=== PATIENT | female | born 1985 | race Hispanic/Latino ===

== ENCOUNTER 2017-04-28 18:12 | Emergency (ER) | payer SELFPAY ==
[2017-04-28 18:23] VITALS: BP 122/80
== END 2017-04-29 06:46 | disposition left against medical advice (07) ==
LOC: ED 18:12
DX: R10.9 Unspecified abdominal pain (principal); Z53.21 Procedure and treatment not carried out due to patient leaving prior to being seen by health care provider

== ENCOUNTER 2018-01-31 10:37 | Emergency (ER) | payer MEDICAID ==
--- NOTE | 2018-01-31 13:15 | Emergency Department Report ---
ED Abdominal Pain HPI - General Chief Complaint: Vaginal Bleeding Stated Complaint: 6WKS /SPOTTING Time Seen by Provider: 01/31/18 12:43 Source: patient Mode of arrival: Ambulatory Limitations: No Limitations - History of Present Illness Initial Comments: This is a 32-year-old female who reports that she is 6 weeks based on test that she took at home. She says she has an appointment at [facility] in [place] on 02/05/2018 and this will be her first visit. She reports that she is having some abdominal pressure and light cramping to her pelvic area. Denies any urinary burning or urgency but reports some urinary frequency. She said that she has brown to red blood that she noted some drops in the toilet but no clots. She says that the bleeding has stopped disowning lasted for moment. She said her was confirmed at the health department and she is 3 para 2. No previous related problem per patient's. No nausea or vomiting. Pain is 3 out of 10, crampy and intermittent and no medication taken. Denies any fever or chills or any back pain MD Complaint: abdominal pain, other (vaginal bleed) -: This morning Location: suprapubic Radiation: none Migration to: no migration Severity: mild Severity scale (0 -10): 3 Quality: cramping Consistency: intermittent Improves With: nothing Worsens With: nothing Context: other (confirm ) Associated Symptoms: hematuria, other (vaginal bleeding). denies: nausea, vomiting, diarrhea, fever, chills, constipation, dysuria, hematemesis, hematochezia, melena, anorexia - Related Data LMP (females 10-50): Previous Rx's Medication Instructions Recorded Last Taken Type Ciprofloxacin HCl [Ciprofloxacin 500 mg PO Q12H #10 tab 12/08/14 Unknown Rx TAB] Fluconazole [Diflucan] 150 mg PO ONCE #1 tablet 12/08/14 Unknown Rx metroNIDAZOLE [Flagyl] 500 mg PO Q12H #14 tablet 12/08/[address] [Carmela Day] 75 mg PO Q12H #20 tablet 04/22/15 Unknown Rx Nitrofurantoin [place]/M-Cryst 100 mg PO Q12HR 7 Days #14 capsule 01/31/18 Unknown Rx [Macrobid CAP] Allergies Allergy/AdvReac Type Severity Reaction Status Date / Time No Known Allergies Allergy Verified 01/31/18 10:44 ED Review of Systems ROS: Stated complaint: 6WKS /SPOTTING Other details as noted in HPI Constitutional: denies: chills, fever Eyes: denies: eye pain, eye discharge ENT: ear pain. denies: throat pain, congestion Respiratory: denies: cough, shortness of breath, SOB with exertion, SOB at rest , stridor, wheezing Cardiovascular: denies: chest pain, palpitations, edema, syncope Gastrointestinal: abdominal pain. denies: nausea, vomiting, diarrhea, constipation, hematemesis, melena, hematochezia Genitourinary: frequency, other (vaginal bleed and an report 6 weeks ). denies: urgency, dysuria, hematuria, discharge Musculoskeletal: denies: back pain, joint swelling, arthralgia, myalgia Skin: denies: rash, lesions Neurological: denies: headache, weakness ED Past Medical Hx - Past Medical History Previous Medical History?: No - Surgical History Past Surgical History?: No - Family History Family history: hypertension - Social History Smoking Status: Never Smoker Substance Use Type: None - Medications Home Medications: Home Medications Medication Instructions Recorded Confirmed Last Taken Type Ciprofloxacin HCl [Ciprofloxacin 500 mg PO Q12H #10 tab 12/08/14 Unknown Rx TAB] Fluconazole [Diflucan] 150 mg PO ONCE #1 tablet 12/08/14 Unknown Rx metroNIDAZOLE [Flagyl] 500 mg PO Q12H #14 tablet 12/08/[address] [Voltaren Dr] 75 mg PO Q12H #20 tablet 04/22/15 Unknown Rx Nitrofurantoin [place]/M-Cryst 100 mg PO Q12HR 7 Days #14 capsule 01/31/18 Unknown Rx [Macrobid CAP] ED Physical Exam - General Limitations: No Limitations General appearance: alert, in no apparent distress - Head Head exam: Present: atraumatic, normocephalic, normal inspection - Eye Eye exam: Present: normal appearance, PERRL, EOMI Pupils: Present: normal accommodation - ENT ENT exam: Present: normal exam, normal orophraynx, mucous membranes moist, TM's normal bilaterally, normal external ear exam - Neck Neck exam: Present: normal inspection, full ROM. Absent: tenderness, lymphadenopathy - Respiratory Respiratory exam: Present: normal lung sounds bilaterally. Absent: respiratory distress, chest wall tenderness - Cardiovascular Cardiovascular Exam: Present: regular rate, normal rhythm, normal heart sounds. Absent: systolic murmur, diastolic murmur - GI/Abdominal GI/Abdominal exam: Present: soft, tenderness (mild suprapubic tenderness), normal bowel sounds. Absent: distended, guarding, rebound, rigid, organomegaly , mass - Extremities Exam Extremities exam: Present: normal inspection, full ROM, normal capillary refill , other (No cce. + 2 pulses in all extremities, no neurovascular compromise). Absent: tenderness, pedal edema, joint swelling, calf tenderness - Back Exam Back exam: Present: normal inspection, full ROM, other (ambulate without any difficulties). Absent: tenderness, CVA tenderness (R), CVA tenderness (L), muscle spasm, paraspinal tenderness, vertebral tenderness, rash noted - Neurological Exam Neurological exam: Present: alert, normal gait, reflexes normal. Absent: motor sensory deficit - Psychiatric Psychiatric exam: Present: normal affect, normal mood - Skin Skin exam: Present: warm, dry, intact, normal color. Absent: rash ED Course Vital Signs 01/31/18 10:44 Temperature 97.9 F Pulse Rate 89 Respiratory 18 Rate Blood Pressure 121/75 O2 Sat by Pulse 98 Oximetry - Reevaluation(s) Reevaluation #1: 01/31/18 14:26 Patient with urinary tract infection. She is able to tolerate oral liquids that she was given juices and started on Macrobid. Still awaiting in ultrasound Reevaluation #2: 01/31/18 15:34 Patient is stable, no pain at present. I discussed urinalysis result with patient and also laboratory results. Patient still awaiting ultrasound results Reevaluation #3: 01/31/18 17:13 Patient ultrasound is back and it shows that ED Medical Decision Making - Lab Data Result diagrams: 01/31/18 13:28 01/31/18 13:28 Lab Results 01/31/18 01/31/18 01/31/18 Range/Units 13:28 13:28 13:28 WBC 7.6 (4.5-11.0) K/mm3 RBC 5.03 (3.65-5.03) M/mm3 Hgb 15.6 H (10.1-14.3) gm/dl Hct 45.4 H (30.3-42.9) % MCV 90 (79-97) fl MCH 31 (28-32) pg MCHC 34 (30-34) % RDW 12.7 L (13.2-15.2) % Plt Count 312 (140-440) K/mm3 Lymph % (Auto) 23.3 (13.4-35.0) % [place] % (Auto) 6.2 (0.0-7.3) % Eos % (Auto) 1.2 (0.0-4.3) % Baso % (Auto) 1.0 (0.0-1.8) % Lymph # 1.8 (1.2-5.4) K/mm3 [place] # 0.5 (0.0-0.8) K/mm3 Eos # 0.1 (0.0-0.4) K/mm3 Baso # 0.1 (0.0-0.1) K/mm3 Seg Neutrophils % 68.3 (40.0-70.0) % Seg Neutrophils # 5.2 (1.8-7.7) K/mm3 Sodium 136 L (137-145) mmol/L Potassium 4.2 (3.6-5.0) mmol/L Chloride 103.0 (98-107) mmol/L Carbon Dioxide 24 (22-30) mmol/L Anion Gap 13 mmol/L BUN 8 (7-17) mg/dL Creatinine 0.6 L (0.7-1.2) mg/dL Estimated GFR > 60 ml/min BUN/Creatinine Ratio 13 % Glucose 85 (65-100) mg/dL Calcium 8.6 (8.4-10.2) mg/dL HCG, Qual (Negative) HCG, Quant 41.41 H (0-4) mIU/mL Urine Color (Yellow) Urine Turbidity (Clear) Urine pH (5.0-7.0) Ur Specific [place] (1.003-1.030) Urine Protein (Negative) mg/dL Urine Glucose (UA) (Negative) mg/dL Urine Ketones (Negative) mg/dL Urine Blood (Negative) Urine Nitrite (Negative) Urine Bilirubin (Negative) Urine Urobilinogen (<2.0) mg/dL Ur Leukocyte Esterase (Negative) Urine WBC (Auto) (0.0-6.0) /HPF Urine RBC (Auto) (0.0-6.0) /HPF U Epithel Cells (Auto) (0-13.0) /HPF Urine Bacteria (Auto) (Negative) /HPF Urine WBC Clumps /HPF Blood Type Antibody Screen 01/31/18 01/31/18 01/31/18 Range/Units 13:28 13:28 13:32 WBC (4.5-11.0) K/mm3 RBC (3.65-5.03) M/mm3 Hgb (10.1-14.3) gm/dl Hct (30.3-42.9) % MCV (79-97) fl MCH (28-32) pg MCHC (30-34) % RDW (13.2-15.2) % Plt Count (140-440) K/mm3 Lymph % (Auto) (13.4-35.0) % [place] % (Auto) (0.0-7.3) % Eos % (Auto) (0.0-4.3) % Baso % (Auto) (0.0-1.8) % Lymph # (1.2-5.4) K/mm3 [place] # (0.0-0.8) K/mm3 Eos # (0.0-0.4) K/mm3 Baso # (0.0-0.1) K/mm3 Seg Neutrophils % (40.0-70.0) % Seg Neutrophils # (1.8-7.7) K/mm3 Sodium (137-145) mmol/L Potassium (3.6-5.0) mmol/L Chloride (98-107) mmol/L Carbon Dioxide (22-30) mmol/L Anion Gap mmol/L BUN (7-17) mg/dL Creatinine (0.7-1.2) mg/dL Estimated GFR ml/min BUN/Creatinine Ratio % Glucose (65-100) mg/dL Calcium (8.4-10.2) mg/dL HCG, Qual Positive (Negative) HCG, Quant (0-4) mIU/mL Urine Color Red (Yellow) Urine Turbidity Cloudy (Clear) Urine pH 9.0 H (5.0-7.0) Ur Specific [place] 1.009 (1.003-1.030) Urine Protein 100 mg/dl (Negative) mg/dL Urine Glucose (UA) Neg (Negative) mg/dL Urine Ketones Neg (Negative) mg/dL Urine Blood Lg (Negative) Urine Nitrite Neg (Negative) Urine Bilirubin Neg (Negative) Urine Urobilinogen < 2.0 (<2.0) mg/dL Ur Leukocyte Esterase Sm (Negative) Urine WBC (Auto) 74.0 H (0.0-6.0) /HPF Urine RBC (Auto) > 182.0 (0.0-6.0) /HPF U Epithel Cells (Auto) 9.0 (0-13.0) /HPF Urine Bacteria (Auto) 2+ (Negative) /HPF Urine WBC Clumps 2+ /HPF Blood Type O POSITIVE Antibody Screen Negative Urine culture pending - Radiology Data Radiology results: report reviewed Patient's with OB transabdominal and transvaginal ultrasound less than 14 weeks dictated by radiologist's and report reviewed by myself. Please see report below. Patient: FAHAD FLORES MR#: [id number] : 1985 Acct:[id number] Age/Sex: 32 / F ADM Date: 01/31/18 Loc: ED Attending Dr: Ordering Physician: FELICE RAI Date of Service: 01/31/18 Procedure(s): US OB transvaginal Accession Number(s): [id number] cc: FELICE RAI FINAL REPORT EXAM: US OB TRANSVAGINAL HISTORY: 6 weeks with vaginal bleeding/abd pain TECHNIQUE: Transabdominal and transvaginal sonography of the pelvis. PRIORS: None. FINDINGS: The uterus measures 8.3 x 4.7 x 5.6 cm and appears grossly unremarkable. Punctate calcification and small nabothian cysts in the lower uterine segment. The endometrial stripe measures 11 mm in AP dimension. No intrauterine fluid collection or IUP identified. The right ovary measures 3.1 x 2.0 x 2.4 cm and is grossly unremarkable. The left ovary measures 4.0 x 2.6 x 3.4 cm and is grossly unremarkable. No adnexal masses, ring-like structures or significant free peritoneal fluid. IMPRESSION: 1. No IUP identified. Possibilities include early gestation, early failure, or ectopic . Correlation with serial beta-hCG levels and follow-up ultrasound may help in further evaluation. Transcribed By: [facility] Dictated By: SHAYY WIN MD Electronically Authenticated By: SHAYY WIN MD Signed Date/Time: 01/31/181643 DD/ 43 TD/TT: 01/31/181643 Findings [facility] [address] [place] [address] Ultrasound Report Signed Patient: FAHAD FLORES MR#: [id number] : 1985 Acct:[id number] Age/Sex: 32 / F ADM Date: 01/31/18 Loc: ED Attending Dr: Ordering Physician: FELICE RAI Date of Service: 01/31/18 Procedure(s): US OB transvaginal Accession Number(s): [id number] cc: FELICE RAI FINAL REPORT EXAM: US OB TRANSVAGINAL HISTORY: 6 weeks with vaginal bleeding/abd pain TECHNIQUE: Transabdominal and transvaginal sonography of the pelvis. PRIORS: None. FINDINGS: The uterus measures 8.3 x 4.7 x 5.6 cm and appears grossly unremarkable. Punctate calcification and small nabothian cysts in the lower uterine segment. The endometrial stripe measures 11 mm in AP dimension. No intrauterine fluid collection or IUP identified. The right ovary measures 3.1 x 2.0 x 2.4 cm and is grossly unremarkable. The left ovary measures 4.0 x 2.6 x 3.4 cm and is grossly unremarkable. No adnexal masses, ring-like structures or significant free peritoneal fluid. IMPRESSION: 1. No IUP identified. Possibilities include early gestation, early failure, or ectopic . Correlation with serial beta-hCG levels and follow-up ultrasound may help in further evaluation. Transcribed By: [facility] Dictated By: SHAYY WIN MD Electronically Authenticated By: SHAYY WIN MD Signed Date/Time: 01/31/181643 DD/ 43 TD/TT: 01/31/181643 - Medical Decision Making This is a 32-year-old female who reports that she is 6 weeks based on test that she took at home. She says she has an appointment at [facility]++ [facility] in [place] on 02/05/2018 and this will be her first visit. She reports that she is having some abdominal pressure and light cramping to her pelvic area. Denies any urinary burning or urgency but reports some urinary frequency. This was a one-time occurrence and she is here for evaluation. Patient was seen by myself and examination normal except she has minimal suprapubic tenderness. Ultrasound OB transabdominal insurance vaginal shows no IUP and radiologist's is making reference to probably early gestation, probably ectopic pregnancyNo IUP identified. Possibilities include early gestation, early failure, or ectopic . Correlation with serial beta-hCG levels and follow-up ultrasound may help in further evaluation. Beta hCG is 43 which is low for 6 weeks . I discussed with the patient in detail with rony possibility of possible complete , threatened , early versus ectopic . I discussed with her she can come back in 3 days to get hormone tests done or she can wait until to see her C++ PROFESSOR and she decided to wait until to see her C++ PROFESSOR because she said she is not bleeding at present. Patient urinalysis shows that she has urinary tract infection. Her BMP and blood is positive. I discussed results of ultrasound and lab work with patient and she voiced understanding. She was given her first dose of Macrobid in emergency room to treat urinary tract infection culture sent. Patient discharged home in stable condition to return to the hospital if she has increase or returning bleeding, increasing pain in her abdomen, nausea and/or vomiting and she voiced understanding. She is to follow-up with her C++ PROFESSOR and she was given prescription for Macrobid. - Differential Diagnosis complete , threatened , hemorrhagic cystitis Critical care attestation.: If time is entered above; I have spent that time in minutes in the direct care of this critically ill patient, excluding procedure time. ED Disposition Clinical Impression: Positive blood test, Vaginal bleeding affecting early , Acute cystitis during in first trimester, Pelvic pain during Disposition: - TO HOME OR SELFCARE Is pt being admited?: No Does the pt Need Aspirin: No Condition: Stable Instructions: Urinary Tract Infection in Women (ED), Abdominal Pain in (ED) Additional Instructions: Your hormone test is at 43. Please bring this results with you to your C++ PROFESSOR visit on Take Macrobid starting tonight for urinary tract infection If he developed return vaginal bleeding, any abdominal pain and cramping, weakness dizziness please return to the emergency room [facility]O otherwise keep your appointment we C++ PROFESSOR Referrals: PRIMARY CARE, [Primary Care Provider] - 3-5 Days you are, C++ PROFESSOR [Other] - 02/03/18 Forms: Work/School Release Form(ED)
[2018-01-31 13:45] LABS: Basophils # (Auto) 0.1 K/mm3 (0.0-0.1); Eosinophils # (Auto) 0.1 K/mm3 (0.0-0.4); Eosinophils % (Auto) 1.2 % (0.0-4.3); Hematocrit 45.4 % (30.3-42.9); Hemoglobin 15.6 gm/dl (10.1-14.3); Lymphocytes # (Auto) 1.8 K/mm3 (1.2-5.4); Lymphocytes % (Auto) 23.3 % (13.4-35.0); Mean Corpuscular HGB Conc 34 % (30-34); Mean Corpuscular Hemoglobin 31 pg (28-32); Mean Corpuscular Volume 90 fl (79-97); Monocytes # (Auto) 0.5 K/mm3 (0.0-0.8); Monocytes % (Auto) 6.2 % (0.0-7.3); Platelet Count 312 K/mm3 (140-440); Red Blood Count 5.03 M/mm3 (3.65-5.03); Red Cell Distribution Width 12.7 % (13.2-15.2)
[2018-01-31 13:53] LABS: BUN/Creatinine Ratio 13; Blood Urea Nitrogen 8 mg/dL (7-17); Calcium 8.6 mg/dL (8.4-10.2); Hemolysis Index 11
[2018-01-31 13:57] LABS: Bacteria,Urine 2+ /HPF (Negative); Bilirubin,Urine NEG (Negative); Blood,Urine LG (Negative); Color,Urine Red (Yellow); Urobilinogen,Urine < 2.0 mg/dL (<2.0)
[2018-01-31 14:04] LABS: RBC,Urine > 182.0 /HPF (0.0-6.0)
[2018-01-31] MEDS ORDERED: MACROBID PO ONE (14:26)
--- NOTE | 2018-01-31 16:44 | Ultrasound Report ---
FINAL REPORT EXAM: US OB < = 14 WEEKS FETUS HISTORY: 6 weeks with vaginal bleeding/abd pain TECHNIQUE: Transabdominal and transvaginal sonography of the pelvis. PRIORS: None. FINDINGS: The uterus measures 8.3 x 4.7 x 5.6 cm and appears grossly unremarkable. Punctate calcification and small nabothian cysts in the lower uterine segment. The endometrial stripe measures 11 mm in AP dimension. No intrauterine fluid collection or IUP identified. The right ovary measures 3.1 x 2.0 x 2.4 cm and is grossly unremarkable. The left ovary measures 4.0 x 2.6 x 3.4 cm and is grossly unremarkable. No adnexal masses, ring-like structures or significant free peritoneal fluid. IMPRESSION: 1. No IUP identified. Possibilities include early gestation, early failure, or ectopic . Correlation with serial beta-hCG levels and follow-up ultrasound may help in further evaluation.
[2018-01-31 17:41] VITALS: BP 122/72
== END 2018-01-31 17:40 | disposition home or self-care (01) ==
LOC: ED 10:37
DX: O23.11 Infections of bladder in pregnancy, first trimester (principal); Z3A.01 Less than 8 weeks gestation of pregnancy
CPT/HCPCS: 36415; 76801; 76817; 80048; 81001; 84702; 84703; 85025; 86850; 86900; 86901; 87086

== ENCOUNTER 2019-06-18 07:56 | Emergency (ER) | payer SELFPAY ==
[2019-06-18 08:04] VITALS: BP 120/82
--- NOTE | 2019-06-18 10:29 | Emergency Department Report ---
Chief Complaint: Neuro Symptoms/Deficit Stated Complaint: LFT ARM TINGLE/PAIN LFT ARM Time Seen by Provider: 06/18/19 10:29 - HPI History of Present Illness: Sheridan is a healthy 34-year-old female without significant past medical history presents with left upper back and neck pain which began in the middle of the night. She feels that she has a "crook" in her neck. Pain radiates to her left arm. She has tried BenGay ibuprofen and Tylenol. I recommended heat and ice therapy. On exam she has a rhomboid spasm. She does not have a life or limb threatening medical condition which needs further stabilization and treatment. I recommended supportive care instructions including Tylenol and Ibuprofen [id number]. Given referral to outpatient physician. - Exam Vital Signs: Vital Signs 06/18/19 07:57 Temperature 97.9 F Pulse Rate 95 H Respiratory 20 Rate Blood Pressure 120/82 O2 Sat by Pulse 99 Oximetry MSE screening note: Focused history and physical exam performed. Due to findings the following was ordered: ED Disposition for MSE Condition: Stable Referrals: ANTONIA LOPEZ MD [Primary Care Provider] - 3-5 Days
== END 2019-06-18 10:57 | disposition left against medical advice (07) ==
LOC: ED 07:56
DX: M54.6 Pain in thoracic spine (principal); M54.2 Cervicalgia
CPT/HCPCS: 99281